=== PATIENT | female | born 1960 | race Caucasian/White ===

== ENCOUNTER 2017-11-26 18:44 | Inpatient (IN) ==
[2017-11-26] MEDS ORDERED: Aluminum/Magnesium/Simethacone Susp 30 ML UDC PO PRN (20:56)
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
[2017-11-27 17:43] LABS: Albumin 3.5 g/dL (3.4-5.0); Anion Gap 7 meq/L (5-15); Blood Urea Nitrogen 8 mg/dL (7-18); Calcium 8.9 mg/dL (8.5-10.1); Carbon Dioxide 27.8 meq/L (21.0-32.0); Chloride 108 meq/L (98-107); Glomerular Filtration Rate 66 mL/min (>89); Glucose,Random 110 mg/dL (74-106); Potassium 3.7 meq/L (3.5-5.1); Sodium 143 meq/L (136-145)
[2017-11-27 17:44] LABS: Alanine Aminotransferase 38 U/L (10-53); Aspartate Aminotransferase 24 U/L (15-37)
[2017-11-27 17:54] LABS: Alkaline Phosphatase 61 U/L (45-117); Total Protein 6.7 g/dL (6.4-8.2)
[2017-11-28] MEDS: Magnesium Oxide 400 MG Tablet PO SCH (10:37)
[2017-11-28] MEDS: buPROPion 150 MG XL 24 HR Tablet PO SCH (10:38)
[2017-11-28] MEDS: Estradiol 1 MG Tablet PO SCH (10:39)
[2017-11-28] MEDS: FLUoxetine 20 MG Capsule PO SCH (10:41)
[2017-11-28] MEDS: Acetaminophen 325 MG Tablet PO PRN ×2 (11:13→21:36)
--- NOTE | 2017-11-28 18:51 | P.PNPSY ---
Subjective Chief Complaint: Ingestion Remarks: Reviewed electronic medical records and discussed case with staff. Follow-up was conducted in patient's room. She was moved from 4 E. to the 2600 unit and apparently expressed some dissatisfaction with the staff. Upon arrival to the 2600 unit she has filled out and our ROR. Patient is found awake, alert, and oriented 4. Her speech is clear, logical, and organized. She does seem to have increased anxiety but, expresses a strong desire to leave tomorrow. She denies suicidal or homicidal ideation as well as auditory or visual hallucinations. She reports that she has been sleeping well and has had a good appetite. Staff reports she has been no behavioral issue today. Mental Status Examination Appearance: Appropriate Consciousness: Alert Orientation: Person, Place (At least) Motor Activity: Normal gait Speech: Unremarkable Language: Adequate Fund of Knowledge: Adequate Attention and Concentration: Adequate Memory: Unremarkable Mood: Appropriate Affect: Anxious Thought Process & Associations: Intact Thought Content: Appropriate Hallucination Type: None Delusion Type: None Suicidal Ideation: No (Unclear whether patient is reliable to contract for safety) Suicidal Plan: No Suicidal Intention: No Homicidal Ideation: No Homicidal Plan: No Homicidal Intention: No Insight: Fair (Fair to poor) Judgment: Impulsive Assessment and Plan - Assessment (1) Adjustment disorder with mixed disturbance of emotions and conduct Code(s): F43.25 - Adjustment disorder with mixed disturbance of emotions and conduct Status: Acute - Plan Plan: Patient will be reevaluated tomorrow by the attending psychiatrist. Continue with current treatment plan. Justification for Continued Inpatient Stay: Moving this patient to a less restrictive environment would likely result in decompensation. Request Healthcare Surrogate/Guardian Advocate?: No
[2017-11-29] MEDS: Magnesium Oxide 400 MG Tablet PO SCH (08:16)
[2017-11-29] MEDS: FLUoxetine 20 MG Capsule PO SCH (08:16)
[2017-11-29] MEDS: Estradiol 1 MG Tablet PO SCH (08:17)
[2017-11-29] MEDS: buPROPion 150 MG XL 24 HR Tablet PO SCH (08:17)
[2017-11-29] MEDS: Acetaminophen 325 MG Tablet PO PRN (08:30)
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
== END 2017-11-29 15:05 | disposition home or self-care (01) ==
LOC: H4EA 20:00 → H260 11-28 16:14
PROVIDERS: ADMIT Student in an Organized Health Care Education/Training Program; ATTEND Student in an Organized Health Care Education/Training Program